=== PATIENT | female | born 1940 | race Native Hawaiian/Other Pacific Islander ===

== ENCOUNTER 2017-08-15 11:42 | Outpatient (CLI) | payer OTHER ==
[2017-08-15] MEDS ORDERED: POTASSIUM CHLO20 ME2 PO (12:28)
[2017-08-15] MEDS ORDERED: OMEPRAZOLE40 MG PO (12:29)
[2017-08-15] MEDS ORDERED: MECLIZINE25 M1 PO (12:30)
[2017-08-15] MEDS ORDERED: ALPR0.5T24 PO (12:30)
[2017-08-15] MEDS ORDERED: XYZAL5 MG OR (12:31)
[2017-08-15] MEDS ORDERED: RISP0.25 PO (12:32)
[2017-08-15] MEDS ORDERED: SIMV20TA2 PO (12:33)
[2017-08-15] MEDS ORDERED: LEVO0.1224 PO (12:33)
[2017-08-15] MEDS ORDERED: HYDR5TAB9 PO (12:34)
[2017-08-15] MEDS ORDERED: TOVIAZ4 MG OR (12:35)
[2017-08-15] MEDS ORDERED: ALLO300T23 PO (12:37)
[2017-08-15] MEDS ORDERED: LAMISIL250 MG PO (12:37)
[2017-08-15] MEDS ORDERED: METOPROLOL25 M1 PO (12:39)
[2017-08-15] MEDS ORDERED: NAPROSYN500 MG PO (12:40)
[2017-08-15] MEDS ORDERED: DONE5TAB PO (12:43)
[2017-08-15] MEDS ORDERED: SEROQUEL25 MG OR (12:45)
[2017-08-15] MEDS ORDERED: ZIPR20CA PO ×2 (12:48→14:58)
[2017-08-15] MEDS ORDERED: LISITAB PO (12:49)
[2017-08-15] MEDS ORDERED: MELATONIN1 TA3 PO (12:52)
[2017-08-15] MEDS ORDERED: TEMA15CA19 PO (12:56)
[2017-08-15] MEDS ORDERED: POTASSIUM CHLO20 ME1 PO (14:57)
[2017-08-15] MEDS ORDERED: LISINOPRIL/HCTZ PO (15:02)
[2017-08-24] MEDS ORDERED: LEXAPRO10 MG PO (17:06)
[2017-08-28] MEDS ORDERED: ESCI10TA PO (10:34)
[2017-08-28] MEDS ORDERED: TRAZ50TA36 PO (10:34)
[2017-08-28] MEDS ORDERED: CYAN10009 INJ (10:34)
[2017-08-28] MEDS ORDERED: NAMZARIC 28-101 CAP PO (10:34)
[2017-08-28] MEDS ORDERED: RISP1TAB PO (10:38)
== END 2017-08-15 12:03 | disposition short-term general hospital (02) ==
LOC: AMB 11:42
DX: F03.91 Unspecified dementia, unspecified severity, with behavioral disturbance (principal)
CPT/HCPCS: A0425; A0429

== ENCOUNTER 2017-08-15 12:09 | Emergency (ER) | payer OTHER ==
[~2017-08-15] VITALS: Ht 162.6 cm; Wt 76.7 kg
[2017-08-15 12:10] VITALS: TEMP 97.9
[2017-08-15 12:24] LABS: PLATELET COUNT 259 K/uL (152-353)
[2017-08-15] MEDS ORDERED: POTASSIUM CHLO20 ME2 PO (12:28)
[2017-08-15] MEDS ORDERED: OMEPRAZOLE40 MG PO (12:29)
[2017-08-15] MEDS ORDERED: MECLIZINE25 M1 PO (12:30)
[2017-08-15] MEDS ORDERED: ALPR0.5T24 PO (12:30)
[2017-08-15] MEDS ORDERED: XYZAL5 MG OR (12:31)
[2017-08-15 12:32] LABS: SODIUM 139 mmol/L (136-145)
[2017-08-15] MEDS ORDERED: RISP0.25 PO (12:32)
[2017-08-15] MEDS ORDERED: SIMV20TA2 PO (12:33)
[2017-08-15] MEDS ORDERED: LEVO0.1224 PO (12:33)
[2017-08-15] MEDS ORDERED: HYDR5TAB9 PO (12:34)
[2017-08-15] MEDS ORDERED: TOVIAZ4 MG OR (12:35)
[2017-08-15] MEDS ORDERED: ALLO300T23 PO (12:37)
[2017-08-15] MEDS ORDERED: LAMISIL250 MG PO (12:37)
[2017-08-15] MEDS ORDERED: METOPROLOL25 M1 PO (12:39)
[2017-08-15] MEDS ORDERED: NAPROSYN500 MG PO (12:40)
[2017-08-15] MEDS ORDERED: DONE5TAB PO (12:43)
[2017-08-15] MEDS ORDERED: SEROQUEL25 MG OR (12:45)
[2017-08-15] MEDS ORDERED: ZIPR20CA PO ×2 (12:48→14:58)
[2017-08-15] MEDS ORDERED: LISITAB PO (12:49)
[2017-08-15] MEDS ORDERED: MELATONIN1 TA3 PO (12:52)
[2017-08-15] MEDS ORDERED: TEMA15CA19 PO (12:56)
[2017-08-15 13:45] VITALS: BP 122/74
[2017-08-15] MEDS ORDERED: POTASSIUM CHLO20 ME1 PO (14:57)
[2017-08-15] MEDS ORDERED: LISINOPRIL/HCTZ PO (15:02)
== END 2017-08-15 13:46 | disposition other institution (70) ==
LOC: ED 12:09
PROVIDERS: Emergency Medicine
DX: F28 Other psychotic disorder not due to a substance or known physiological condition (principal); F20.89 Other schizophrenia; Z04.6 Encounter for general psychiatric examination, requested by authority
CPT/HCPCS: 80053; 80320; 80329; 85027; 93005; 99282